=== PATIENT | female | born 1990 ===

== ENCOUNTER 2017-05-13 05:29 | Inpatient (IN) | payer BC ==
--- NOTE | 2017-05-12 23:15 | History and Physical Report ---
DATE OF ADMISSION: 05/13/2017 REASON FOR ADMISSION: This is a 27-year-old, G1, P0, AB1, admitted for myomectomy. HISTORY OF PRESENT ILLNESS: The patient is a 27-year-old who has long-term history of symptomatic fibroids with heavy periods and recent increase of menstrual pain. The patient had been previously seen by client advocate for this condition. She was told she needs surgery but to "get first" The patient achieved after attempting for a few years, developed severe abdominal pain at approximately 12 weeks gestation and she miscarried at 14 weeks. At this point , she is having heavy menstrual period with anemia and a large uterine fibroid. PAST MEDICAL HISTORY: Miscarriage. PAST SURGICAL HISTORY: D and C . SOCIAL HISTORY: The patient does not drink or smoke and she lives with her . PHYSICAL EXAMINATION: GENERAL: Young female in no acute distress. VITAL SIGNS: Heart rate 132, blood pressure 110/70, respiratory rate 18, temperature 97.8. HEAD AND NECK: Pupils are equal and reactive to light. LUNGS: Clear to auscultation bilaterally. CARDIAC: Regular rate and rhythm. ABDOMEN: Soft, nondistended, and nontender. Large abdominopelvic mass. PELVIC: Bimanual exam, 14-15-week irregular fibroid uterus with an anterior fibroid. EXTREMITIES: No cords. No cyanosis. No edema. LABORATORY DATA: Blood work consistent with anemia. Hemoglobin 10.4, hematocrit 33.6. On 05/09/2017, HCG negative. Blood type A-positive. ASSESSMENT: This is a 27-year-old, G1, P0, with uterine fibroids with heavy menses and anemia. PLAN: Plan is for hysteroscopy followed by myomectomy. Alternatives to surgery were discussed with the patient including risk factor management, control pills, and attempting again. Plan is for ex-lap, myomectomy. Carlee Lyn M.D. DR: ULICES JOB#: [id number] CC: KISHA
[~2017-05-13] VITALS: Ht 175 cm; Wt 68.0 kg
[2017-05-13] VITALS (19 sets, daily range): BP systolic 85–102; BP diastolic 40–83
[2017-05-13] MEDS ORDERED: NKM (06:12)
[2017-05-13] MEDS ORDERED: Duramorph PF 5mg/10ml amp ONE (06:57)
[2017-05-13] MEDS ORDERED: Bupivacaine 0.5% Inj 30 ml vial INJ ONE (06:58)
[2017-05-13] MEDS ORDERED: cefOXitin 1gm Inj ONE (06:58)
[2017-05-13] MEDS ORDERED: Ropivacaine 5mg/ml Vial 30ml INJ ONE (06:58)
[2017-05-13] MEDS ORDERED: cefOXitin Sod 2 GM in D5W 110 ML IVPB ONE (07:00)
--- NOTE | 2017-05-13 07:07 | Pre-Procedure Note/Attestation ---
Pre-Procedure Note/Attestation Complete Prior to Procedure Planned Procedure: not applicable Procedure Narrative: Myomectomy, hysteroscopy Indications for Procedure Pre-Operative Diagnosis: symptomatic uterine fibroid metromenorhagia anemia Attestation I attest that I discussed the nature of the procedure; its benefits; risks and complications; and alternatives (and the risks and benefits of such alternatives ), prior to the procedure, with the patient (or the patient's legal international representative). I attest that, if there was a reasonable possibility of needing a blood transfusion, the patient (or the patient's legal international representative) was given the [facility] standardized written summary, pursuant to the [place] Blood Safety Act ([place] Health and Safety Code # 1645, as amended). I attest that I re-evaluated the patient just prior to the surgery and that there has been no change in the patient's H&P, except as documented below: OLIVER SKY May 13, 2017 07:07
[2017-05-13] MEDS ORDERED: Norco 5mg/325mg tab ORAL PRN (07:15)
[2017-05-13] MEDS ORDERED: Midazolam 2mg/2ml Inj ONE (07:30)
[2017-05-13] MEDS ORDERED: Glycopyrrolate 0.2mg/ml 1ml Vial ONE (07:30)
[2017-05-13] MEDS ORDERED: NS Irrig 1000ml ONE (07:30)
[2017-05-13] MEDS ORDERED: Ketorolac 30mg Inj ONE (07:30)
[2017-05-13] MEDS ORDERED: Succinylcholine 20mg/ml 10ml vial ONE (07:30)
[2017-05-13] MEDS ORDERED: Propofol 200mg/20ml IV ONE (07:30)
[2017-05-13] MEDS ORDERED: Neostigmine 1mg/ml 10ml Inj ONE (07:30)
[2017-05-13] MEDS ORDERED: fentaNYL 100 mcg/2 mL IV ONE (07:30)
[2017-05-13] MEDS ORDERED: LR 1000ml ONE (07:30)
[2017-05-13] MEDS ORDERED: Sterile Water Irrig 1000ml IRRIG ONE (07:30)
[2017-05-13] MEDS ORDERED: HETASTARCH IV ONE (07:33)
[2017-05-13] MEDS ORDERED: LR 1000ml 1,000 ML IVLG SCH (08:34)
--- NOTE | 2017-05-13 08:34 | Anethesia Preoperative Eval ---
Anesthesia Pre-op PMH/ROS General Date of Evaluation: May 13, 2017 Time of Evaluation: 07:15 Anesthesiologist: Christina ASA Score: ASA 2 Mallampati Score Class I : Soft palate, uvula, fauces, pillars visible Class II: Soft palate, uvula, fauces visible Class III: Soft palate, base of uvula visible Class IV: Only hard plate visible Mallampati Classification: Class II Surgeon: Ta Diagnosis: Symptomatic uterine fibroids Surgical Procedure: D&C Hysteroscopy Open abdominal myomectomy Anesthesia History: PONV Family History: no anesthesia problems Allergies: Coded Allergies: No Known Allergies (Unverified , 05/12/17) Medications: see eMAR Past Medical History Cardiovascular: Denies: HTN, CAD, CO, valve dz, arrhythmia, other Pulmonary: Denies: asthma, COPD, SIMRAN, other Gastrointestinal/Genitourinary: Reports: GERD - mild, Denies: CRI, ESRD, other Neurologic/Psychiatric: Denies: dementia, CVA, depression/anxiety, TIA, other Endocrine: Denies: DM, hypothyroidism, steroids, other HEENT: Denies: cataract (L), cataract (R), glaucoma, [place] (L), [place] (R), other Hematology/Immune: Reports: anemia - mild Musculoskeletal/Integumentary: Denies: OA, RA, DJD, DDD, edema, other PMH Narrative: as above PSxH Narrative: Suction D&C for incomplete Anesthesia Pre-op Phys. Exam Physician Exam Last Vital Signs Date Time Temp Pulse Resp B/P (MAP) Pulse Ox O2 Delivery O2 Flow Rate FiO2 05/13/17 06:30 98.1 64 20 98/58 98 Room Air Constitutional: NAD Neurologic: CN 2-12 intact Cardiovascular: RRR, no M/R/G Respiratory: CTA Gastrointestinal: S/NT/ND Airway Exam Mallampati Score: Class II MO: full Neck: flexible ROM: full Teeth: intact Dentures: no upper, no lower Anesthesia Pre-op A/P Labs see chart Urine Test Test 05/13/17 05:55 Urine HCG, Qualitative Negative Risk Assessment & Plan Assessment: ASA 2 Plan: GA with ETT intrathecal Duramorph for postoperative pain control Status Change Before Surgery: No Pre-Antibiotics Drug: Cefoxetin 1gr. Given Within 1 Hr of Incision: Yes Time Given: :10 RAHUL HENRIQUEZ M.D. May 13, 2017 08:34
[2017-05-13] MEDS ORDERED: Metoclopramide 10mg/2ml Inj IVP PRN (08:45)
[2017-05-13] MEDS ORDERED: Ketorolac 30mg Inj IV PRN (08:45)
[2017-05-13] MEDS ORDERED: Midazolam 2mg/2ml Inj IVP PRN (08:45)
[2017-05-13] MEDS ORDERED: DiphenhydrAMINE 50mg/ml Inj IVP PRN (08:45)
[2017-05-13] MEDS ORDERED: Interceed TOPIC ONE (09:09)
[2017-05-13] MEDS ORDERED: Hydromorphone 0.5mg/0.5ml inj IVP PRN (09:30)
--- NOTE | 2017-05-13 10:39 | Immediate Post-Op Evaluation ---
Immediate Post-Op Evalulation Immediate Post-Op Evalulation Procedure: D&C Hysteroscopy Open abdominal myomectomy Date of Evaluation: May 13, 2017 Time of Evaluation: 10:38 IV Fluids: 1300 Blood Products: none Estimated Blood Loss: 150 Urinary Output: 100 Blood Pressure Systolic: 98 Blood Pressure Diastolic: 54 Pulse Rate: 87 Respiratory Rate: 20 O2 Sat by Pulse Oximetry: 99 Temperature (Fahrenheit): 97.6 Pain Score (1-10): 2 Nausea: No Vomiting: No Complications none Patient Status: reacts, patent, extubated, none RAHUL HENRIQUEZ M.D. May 13, 2017 10:39
[2017-05-13] MEDS: Meperidine 50mg/ml Inj(FOR RIGORS ONLY) IV PRN ×2 (11:16→12:08)
[2017-05-13] MEDS: D5 1/2NS w/KCl 20mEq 1,000 ML IV SCH ×2 (15:11→23:22)
--- NOTE | 2017-05-13 15:30 | 48 Hour Post Anesthesia Eval ---
Post Anesthesia Evaluation Procedure: D&C Hysteroscopy Open abdominal myomectomy Date of Evaluation: May 13, 2017 Time of Evaluation: 15:29 Blood Pressure Systolic: 90 0: 44 Pulse Rate: 91 Respiratory Rate: 16 Temperature (Fahrenheit): 97.7 O2 Sat by Pulse Oximetry: 100 Airway: patent Nausea: No Vomiting: No Pain Intensity: 2 Hydration Status: adequate Cardiopulmonary Status: Stable Mental Status/LOC: patient returned to baseline Follow-up Care/Observations: 0 Post-Anesthesia Complications: 0 Follow-up care needed: N/A Jose Gonzalez MD May 13, 2017 15:30
[2017-05-13] MEDS ORDERED: ceFAZolin sod 1 GM in D5W 55 ML IV ONE (16:00)
[2017-05-13] MEDS: Docusate 100mg cap ORAL SCH (17:25)
[2017-05-13] MEDS: Ketorolac 30mg Inj IV SCH ×2 (17:27→23:38)
[2017-05-13] MEDS: Metoclopramide 10mg/2ml Inj IVP PRN (17:29)
[2017-05-14 00:10] VITALS: BP 95/62
[2017-05-14 04:00] VITALS: BP 99/53
[2017-05-14] MEDS: D5 1/2NS w/KCl 20mEq 1,000 ML IV SCH ×3 (05:52→20:44)
[2017-05-14] MEDS: Ketorolac 30mg Inj IV SCH ×3 (05:53→17:35)
[2017-05-14] MEDS: Metoclopramide 10mg/2ml Inj IVP PRN ×2 (05:57→11:51)
[2017-05-14 08:00] VITALS: BP 100/59
[2017-05-14 08:04] LABS: HEMOGLOBIN 7.7 G/DL (12.0-16.0); MEAN CORPUSCULAR VOLUME 76 FL (80-99); PLATELET COUNT 262 K/UL (150-450); RED CELL DISTRIBUTION WIDTH 14.3 % (11.6-14.8); WHITE BLOOD COUNT 9.7 K/UL (4.8-10.8)
[2017-05-14] MEDS: Docusate 100mg cap ORAL SCH ×2 (08:34→17:35)
--- NOTE | 2017-05-14 09:30 | Brief Operative Note ---
Immediate Post Operative Note Operative Note Pre-op Diagnosis: symptomatic uterine fibroid metromenorhagia anemia Procedure: ex laparatomy, myomectomy, hysteroscopy Post-op Diagnosis: same Post-op Diagnosis: same as pre-op Surgeon: karyna sky md [employer] Manager: isaura vera md Anesthesiologist: belem Anesthesia: general Specimen: yes Complications: none Condition: stable Fluids: per anesthesia Estimated Blood Loss: minimal Drains: none Implant(s) used?: No KARYNA SKY May 14, 2017 09:30
--- NOTE | 2017-05-14 09:33 | General Surgery Progress Note ---
General Surgery-Progress Note Subjective Procedure Performed ex laparatomy, myomectomy, hysteroscopy Symptoms: pain same, not tolerating diet Objective Last 24 Hour Vital Signs Date Time Temp Pulse Resp B/P (MAP) Pulse Ox O2 Delivery O2 Flow Rate FiO2 05/14/17 08:00 98.2 82 18 100/59 98 Room Air 05/14/17 04:00 98.0 78 18 99/53 96 05/14/17 04:00 Room Air 05/14/17 00:10 97.8 74 18 95/62 98 05/14/17 00:10 Room Air 05/13/17 20:18 Room Air 05/13/17 20:18 98.0 101 20 102/61 97 05/13/17 17:57 97.7 05/13/17 16:00 98.0 88 17 96/48 98 05/13/17 15:30 91 16 100 05/13/17 15:00 98.0 98 18 92/47 97 Room Air 05/13/17 14:10 97.7 91 17 90/44 2.0 05/13/17 12:47 98.0 89 17 96/50 100 Nasal Cannula 3.0 05/13/17 12:30 81 17 95/83 100 Nasal Cannula 3.0 05/13/17 12:15 82 17 94/82 100 Nasal Cannula 3.0 05/13/17 12:10 93 16 94/49 100 Nasal Cannula 3.0 05/13/17 12:05 98.0 05/13/17 12:05 98.0 05/13/17 12:00 98 15 93/49 100 Nasal Cannula 3.0 05/13/17 11:50 80 16 93/40 100 Nasal Cannula 3.0 05/13/17 11:41 82 18 90/58 100 Nasal Cannula 3.0 05/13/17 11:30 87 18 96/56 100 Nasal Cannula 3.0 05/13/17 11:16 78 18 92/55 100 Nasal Cannula 3.0 05/13/17 11:05 82 18 98/48 100 Simple Mask 8.0 05/13/17 10:52 79 18 91/48 100 Simple Mask 8.0 05/13/17 10:42 82 18 85/48 100 Simple Mask 8.0 05/13/17 10:39 87 20 99 05/13/17 10:37 84 18 93/57 99 Simple Mask 8.0 05/13/17 10:32 97.8 89 18 96/57 99 Simple Mask 8.0 I&O Intake and Output 05/14/17 05/15/17 19:00 07:00 # Voids 1 Dressing: dry Wound: clean, dry, intact Drains: none Abdomen: soft, flat, non-tender, tenderness - appropriate, present bowel sounds Extremities: no edema, no tenderness Laboratory Tests Test 05/14/17 06:10 White Blood Count 9.7 K/UL (4.8-10.8) Red Blood Count 3.30 M/UL (4.20-5.40) L Hemoglobin 7.7 G/DL (12.0-16.0) L Hematocrit 25.0 % (37.0-47.0) L Mean Corpuscular Volume 76 FL (80-99) L Mean Corpuscular Hemoglobin 23.4 PG (27.0-31.0) L Mean Corpuscular Hemoglobin Concent 30.9 G/DL (32.0-36.0) L Red Cell Distribution Width 14.3 % (11.6-14.8) Platelet Count 262 K/UL (150-450) Mean Platelet Volume 7.6 FL (6.5-10.1) Neutrophils (%) (Auto) % (45.0-75.0) Lymphocytes (%) (Auto) % (20.0-45.0) Monocytes (%) (Auto) % (1.0-10.0) Eosinophils (%) (Auto) % (0.0-3.0) Basophils (%) (Auto) % (0.0-2.0) Differential Total Cells Counted 100 Neutrophils % (Manual) 82 % (45-75) H Lymphocytes % (Manual) 10 % (20-45) L Monocytes % (Manual) 7 % (1-10) Eosinophils % (Manual) 1 % (0-3) Basophils % (Manual) 0 % (0-2) Band Neutrophils 0 % (0-8) Platelet Estimate Adequate Platelet Morphology Normal Hypochromasia 1+ Microcytosis 1+ Assessment Post-op Diagnosis same Additional Comments nausea - but usually easily nauseous and had spinal anesthesia with narcotics nauseous in response to toradol injections plan is npo / fluids/ zofran/ try dilaudid since "metalic taste of Toradol" makes her throw up attempt advancing later today - normal bowel sounds OLIVER SKY May 14, 2017 09:33
[2017-05-14] MEDS: HYDROmorphone 1mg/ml Carpuject IVP PRN ×2 (11:56→17:34)
[2017-05-14 12:00] VITALS: BP 101/54
[2017-05-14] MEDS ORDERED: Tubing IV Secondary IV ONE (15:39)
[2017-05-14 16:00] VITALS: BP 98/62
[2017-05-14 20:00] VITALS: BP 105/68
--- NOTE | 2017-05-14 20:15 | Operative Note - Dictated ---
DATE OF OPERATION: 05/13/2017 PREOPERATIVE DIAGNOSIS: The patient is a 27-year-old with symptomatic uterine fibroids. POSTOPERATIVE DIAGNOSIS: The patient is a 27-year-old with symptomatic uterine fibroids. PROCEDURES: Exploratory laparotomy, myomectomy, and hysteroscopy. ANESTHESIA: General endotracheal and spinal. SURGEON: Carlee Lyn M.D. SUPPORT SERVICES REP: Jeanie Garcia M.D. ANESTHESIOLOGIST: Garret Vasquez M.D. ESTIMATED BLOOD LOSS: 150 mL. URINARY OUTPUT: 100 mL clear urine. PROCEDURE IN DETAIL: After ensuring informed consent, the patient was taken to the operating room where general anesthesia was induced. The patient was sterilely prepped and draped. A speculum was placed in the vagina. Cervix was easily dilated to an 8 Hegar dilator. Hysteroscope was placed inside the uterine cavity. Uterine cavity was distended with normal saline. Uterine cavity appeared to be normal. There were no fibroids and bilateral ostia were observed. Hysteroscope was withdrawn. Next, attention was turned to the abdomen where a low transverse 6 cm incision was made and carried down to the level of the fascia with the Bovie. The fascia was nicked in the midline. Incision was extended laterally. Kochers were used to grasp the fascia and dissect the fascia away from the underlying rectus muscles. Rectus muscles were parted in the midline. The peritoneum was grasped with Qiana and entered sharply with Metzenbaum scissors. When the peritoneal cavity was entered, it was noted that while grasping the peritoneum, a segment of small bowel was caught with the peritoneum and a small serosal injury occurred from being pinched by the Qiana. It was probably less than 2 mm in diameter and it was just only serosal injury. It was observed and decision was made to look at the area at the end of the procedure. Next, attention was turned to the pelvis. Normal tubes and ovaries were appreciated. Next, a large 11 to 12 cm in diameter fibroid was appreciated. A dilute solution of Pitressin was injected into the subserosa of the uterus and incision was made over the fibroid and the fibroid was resected in pieces marsupializing the fibroid when it was brought into the incision outside of the body. Once the fibroid was completely removed, the redundant serosal edges were trimmed and then the incision was closed in multiple (4 or 5 layers) with #0 Vicryl. At the end of the closure, excellent hemostasis was assured. Next, uterus was replaced inside the peritoneal cavity. Peritoneal cavity was copiously irrigated. Hemostasis was again assured and Interceed adhesion barrier was placed over the uterine incision, which was anterior and fundal. Next, attention was turned again to the segment of small bowel that was pinched by the Qiana. There was again a small denuded area of serosa, 2 mm in diameter was noted. A suture of 4-0 Vicryl on PS3 needle was used to close the serosa in one interupted suture and excellent hemostasis was assured. Next, peritoneum was closed with 2-0 Vicryl, muscle was approximated with 2-0 Vicryl, fascia was closed with #0 Vicryl in two lengths. Subcutaneous tissue was closed with 3-0 plain in two layers. The skin was closed with 3-0 Monocryl and a Roland needle and Steri-Strips were placed over the incision. At the end of the procedure, all instrument and lap counts were correct x3. The patient was taken to the recovery area, extubated, and in stable condition with Modi in situ. Carlee Lyn M.D. DR: YON JOB#: [id number] CC: KISHA
[2017-05-14] MEDS: HYDROcodone/Acetamin 10/325 tab ORAL PRN (22:18)
[2017-05-15 04:00] VITALS: BP 102/61
[2017-05-15] MEDS: D5 1/2NS w/KCl 20mEq 1,000 ML IV SCH ×2 (04:45→15:00)
[2017-05-15] MEDS: HYDROcodone/Acetamin 10/325 tab ORAL PRN (04:51)
[2017-05-15] MEDS: Ketorolac 30mg Inj IV SCH ×4 (06:00→17:37)
[2017-05-15 07:50] LABS: ALANINE AMINOTRANSFERASE 20 U/L (12-78); ALBUMIN 2.7 G/DL (3.4-5.0); ALBUMIN/GLOBULIN RATIO 0.7 (1.0-2.7); ALKALINE PHOSPHATASE 49 U/L (46-116); ANION GAP 3 mmol/L (5-15); ASPARTATE AMINO TRANSFERASE 14 U/L (15-37); BILIRUBIN,TOTAL 0.4 MG/DL (0.2-1.0); BLOOD UREA NITROGEN 2 mg/dL (7-18); CARBON DIOXIDE 28 MMOL/L (21-32); CHLORIDE 108 MMOL/L (98-107); CREATININE 0.6 MG/DL (0.55-1.30); POTASSIUM 3.6 MMOL/L (3.5-5.1); SODIUM 139 MMOL/L (136-145)
[2017-05-15 08:00] VITALS: BP 105/65
[2017-05-15] MEDS: Docusate 100mg cap ORAL SCH ×2 (08:09→17:35)
[2017-05-15 08:31] LABS: HEMATOCRIT 25.4 % (37.0-47.0); HEMOGLOBIN 7.9 G/DL (12.0-16.0); MEAN CORPUSCULAR VOLUME 76 FL (80-99); PLATELET COUNT 243 K/UL (150-450); RED BLOOD COUNT 3.35 M/UL (4.20-5.40); RED CELL DISTRIBUTION WIDTH 14.1 % (11.6-14.8); WHITE BLOOD COUNT 6.8 K/UL (4.8-10.8)
--- NOTE | 2017-05-15 11:44 | General Surgery Progress Note ---
General Surgery-Progress Note Subjective Procedure Performed ex laparatomy, myomectomy, hysteroscopy Symptoms: improved, pain same, tolerating diet, passing flatus Objective Last 24 Hour Vital Signs Date Time Temp Pulse Resp B/P (MAP) Pulse Ox O2 Delivery O2 Flow Rate FiO2 05/15/17 08:00 97.5 78 18 105/65 98 Room Air 05/15/17 05:50 98.5 05/15/17 04:00 98.5 76 18 102/61 98 Room Air 05/14/17 20:00 98.0 85 18 105/68 97 Room Air 05/14/17 16:00 98.3 85 18 98/62 99 Room Air 05/14/17 12:00 97.3 72 17 101/54 98 Room Air I&O Intake and Output 05/15/17 05/16/17 19:00 07:00 Intake Total 240 ml Balance 240 ml Intake Oral 240 ml Dressing: dry Wound: clean, dry, intact Drains: none Cardiovascular: RSR Respiratory: clear Abdomen: soft, flat, non-tender, present bowel sounds Extremities: no edema, no tenderness, no cyanosis Laboratory Tests Test 05/15/17 05:05 White Blood Count 6.8 K/UL (4.8-10.8) Red Blood Count 3.35 M/UL (4.20-5.40) L Hemoglobin 7.9 G/DL (12.0-16.0) L Hematocrit 25.4 % (37.0-47.0) L Mean Corpuscular Volume 76 FL (80-99) L Mean Corpuscular Hemoglobin 23.5 PG (27.0-31.0) L Mean Corpuscular Hemoglobin Concent 31.1 G/DL (32.0-36.0) L Red Cell Distribution Width 14.1 % (11.6-14.8) Platelet Count 243 K/UL (150-450) Mean Platelet Volume 7.4 FL (6.5-10.1) Neutrophils (%) (Auto) % (45.0-75.0) Lymphocytes (%) (Auto) % (20.0-45.0) Monocytes (%) (Auto) % (1.0-10.0) Eosinophils (%) (Auto) % (0.0-3.0) Basophils (%) (Auto) % (0.0-2.0) Differential Total Cells Counted 100 Neutrophils % (Manual) 56 % (45-75) Lymphocytes % (Manual) 29 % (20-45) Monocytes % (Manual) 9 % (1-10) Eosinophils % (Manual) 6 % (0-3) H Basophils % (Manual) 0 % (0-2) Band Neutrophils 0 % (0-8) Platelet Estimate Adequate Platelet Morphology Normal Hypochromasia 1+ Microcytosis 1+ Sodium Level 139 MMOL/L (136-145) Potassium Level 3.6 MMOL/L (3.5-5.1) Chloride Level 108 MMOL/L (98-107) H Carbon Dioxide Level 28 MMOL/L (21-32) Anion Gap 3 mmol/L (5-15) L Blood Urea Nitrogen 2 mg/dL (7-18) L Creatinine 0.6 MG/DL (0.55-1.30) Estimat Glomerular Filtration Rate > 60 mL/min (>60) Glucose Level 102 MG/DL (74-106) Calcium Level 8.0 MG/DL (8.5-10.1) L Total Bilirubin 0.4 MG/DL (0.2-1.0) Aspartate Amino Transf (AST/SGOT) 14 U/L (15-37) L Alanine Aminotransferase (ALT/SGPT) 20 U/L (12-78) Alkaline Phosphatase 49 U/L (46-116) Total Protein 6.4 G/DL (6.4-8.2) Albumin 2.7 G/DL (3.4-5.0) L Globulin 3.7 g/dL Albumin/Globulin Ratio 0.7 (1.0-2.7) L Assessment Post-op Diagnosis same Additional Comments tolerating clears no more nausea or vomiting feels fine and is able to void and ambulate and passed flatus Plan Additional Comments d/c home if tolerates regular diet OLIVER SKY May 15, 2017 11:44
--- NOTE | 2017-05-15 11:51 | Discharge Summary ---
Discharge Summary Hospital Course Date of Admission May 13, 2017 at 05:29 Date of Discharge may 15, 2017 Admitting Diagnosis symptomatic fibroid HPI Rupert Rincon is a 27 year old female who was admitted on May 13, 2017 at 05:29 for Uterine Fibroids Consultations none Procedures hysteroscopy, myomectomy Hospital Course complicated by nausea and vomiting and inability to tolerate diet until post op day1 afternoon Discharge Condition Upon Discharge: stable Discharge Disposition Patient was discharged to home Discharge Diagnoses: OLIVER SKY May 15, 2017 11:51
[2017-05-15 12:00] VITALS: BP 103/59
[2017-05-15 16:00] VITALS: BP 109/63
--- NOTE | 2017-06-09 14:31 | Discharge Summary ---
Discharge Summary Hospital Course Date of Admission May 13, 2017 at 05:29 Date of Discharge May 15, 2017 at 18:15 Admitting Diagnosis MEME Rincon is a 27 year old female who was admitted on May 13, 2017 at 05:29 for Uterine Fibroids Hospital Course Addendum: Patient 27 y/o F with symptomatic large uterine fibroid was admitted on 05/13/17 and underwent Exploratory laparotomy, myomectomy, and hysteroscopy. Post-operatively, she was not tolerating diet, she had N/V. Diet was advanced, she was tolerating diet and was ambulating well and had flatus. She was discharged home. FINAL DIAGNOSIS 1. Uterine fibroid with heavy menses and anemia. 2. s/p Exploratory laparotomy, myomectomy, and hysteroscopy. 3. Post-op nausea and vomiting, resolved. DISPOSITION: Patient was discharged home to follow-up as outpatient in a week. -I have been assigned to complete a DC summary on this account, I was not involved with the patient management.--Zofia Hermosillo NP Discharge Discharge Disposition Patient was discharged to Home (01) Discharge Diagnoses: Yara Hermosillo NP Jun 09, 2017 14:31
== END 2017-05-15 18:15 | disposition home or self-care (01) | DRG 743 ==
LOC: SDSOVERFLO 05:29 → 3E 13:15
PROC: 0WJG0ZZ Inspection of Peritoneal Cavity, Open Approach (ICD-10-PCS; principal; 2017-05-13 07:30)
PROC: 0UB98ZZ Excision of Uterus, Via Natural or Artificial Opening Endoscopic (ICD-10-PCS; principal; 2017-05-13 07:30)
DX: D25.2 Subserosal leiomyoma of uterus (principal); D64.9 Anemia, unspecified; K21.9 Gastro-esophageal reflux disease without esophagitis; N92.0 Excessive and frequent menstruation with regular cycle; R11.2 Nausea with vomiting, unspecified
CPT/HCPCS: 36415; 80053; 81025; 85007; 85025; 86850; 86900; 86901; 87081; 94003; 94150; J2250; J2405; J2710; J2765